=== PATIENT | male | born 1960 | race Caucasian/White ===

== ENCOUNTER 2024-02-20 13:52 | Emergency (ER) | payer OTHER ==
[~2024-02-20] VITALS: Ht 180.3 cm; Wt 74.6 kg
[~2024-02-20 13:52] MED LIST: CLINDAMYCIN HC300 MG PO; DOXYCYCLINE HY100 MG PO; IBUPROFEN600 MG PO; ROBAXIN-750750 MG PO; TRAMADOL HCL50 MG PO
[2024-02-20] MEDS ORDERED: OXYMETAZOLINE HCL 30 ML BTL NAS ONE (14:15)
[2024-02-20 14:39] VITALS: BP 145/91
== END 2024-02-20 14:39 | disposition home or self-care (01) ==
LOC: ED 13:52
DX: R04.0 Epistaxis (principal); I10 Essential (primary) hypertension; F17.200 Nicotine dependence, unspecified, uncomplicated; Z88.0 Allergy status to penicillin
CPT/HCPCS: 99283

== ENCOUNTER 2025-02-04 10:51 | Emergency (ER) | payer OTHER ==
[~2025-02-04] VITALS: Ht 180.3 cm; Wt 73.0 kg
--- OUTSIDE RECORDS SUMMARY | ~2025-02-04 | XMS | Continuity of Care Document ---
Demographics + + + | Address | [address] | | | [place] [address] | + + + | Preferred Language | Unknown | + + + | Marital Status | Legally | + + + | Mandaeism Affiliation | Unknown | + + + | Race | White | + + + | Ethnic Group | Not or | + + + Author + + + | Author | [facility] | + + + | Organization | [facility] | + + + | Address | [address] | | | [place] [address] | + + + | Phone | | + + + Care Team Providers + + + + | Care Demand Generator Manager Name | Role | Phone | + + + + Unavailable | Unavailable | + + + + Unavailable | Unavailable | + + + + Allergies and Intolerances + + + + + + | date | description | facility | reaction | severity | + + + + + + | 2024-11-28 | Penicillin | [facility] | Urticaria | (no severity) | | 00:00 | | [facility] | | | + + + + + + | 2024-11-28 | Penicillin | [facility] - | Urticaria | (no severity) | | 00:00 | | [facility] | | | + + + + + + | 2024-11-28 | Penicillin | [facility] - | Urticaria | (no severity) | | 00:00 | | [facility] | | | + + + + + + Encounters No information. Functional Status No information. Immunizations No information. Medications + + + + | date | description | facility | + + + + | 2024-11-28 00:00 | [facility] | [facility] | | | | [facility] | + + + + Problems + + + + | date | description | facility | + + + + | 2024-11-28 00:00 | Trochanteric bursitis of | [facility] | | | right hip | [facility] | + + + + Procedures No information. Results/Labs No information. Social History +--------+ + + | date | description | facility | +--------+ + + Vital Signs + + + +---------+ | date | measurement | value | units | + + + +---------+ | 2024-11-28 00:00 | BMI | 24.4 | kg/m2 | + + + +---------+ | 2024-11-28 00:00 | BP_diastolic | 90 | mmHg | + + + +---------+ | 2024-11-28 00:00 | BP_systolic | 165 | mmHg | + + + +---------+ | 2024-11-28 00:00 | heart_rate | 98 | /min | + + + +---------+ | 2024-11-28 00:00 | height_metric | 180.34 | cm | + + + +---------+ | 2024-11-28 00:00 | height_standard | 71 | in | + + + +---------+ | 2024-11-28 00:00 | o2_saturation | 95 | % | + + + +---------+ | 2024-11-28 00:00 | respiration_rate | 18 | /min | + + + +---------+ | 2024-11-28 00:00 | | 98.6 | F | | | temperature_standar | | | | | d | | | + + + +---------+ | 2024-11-28 00:00 | weight_metric | 79.501 | kg | + + + +---------+ | 2024-11-28 00:00 | weight_standard | 175.268 | lb | + + + +---------+"
[~2025-02-04 10:51] MED LIST changes: +METHYLPREDNISOLO4 M1 PO
[2025-02-04 11:25] LABS: BASOPHILS 0.5 % (0.2-1.2); EOSINOPHILS 0.5 % (0.8-7.0); LYMPHOCYTES 18.2 % (21.8-53.1); MCH 30.3 PG (25.7-32.2); MCHC 33.6 g/dL (32.3-36.5); MCV 90.3 fL (79.0-92.2); MONOCYTES 10.7 % (5.3-12.2); NEUTROPHILS 69.8 % (34.0-67.9); RBC 4.52 M/uL (4.63-6.08)
[2025-02-04] MEDS ORDERED: SODIUM CHLORIDE 0.9% 500 ML IV PRN (11:30)
[2025-02-04 11:32] LABS: INR 1.19 (0.80-1.30); PROTIME 14.6 Sec (11.2-14.2)
[2025-02-04 11:37] LABS: ALT (SGPT) 14.0 U/L (14-59); AST (SGOT) 10.0 U/L (15-37); GLOMERULAR FILTRATION RATE,EST 109.0 mL/min (>60); PROTEIN, TOTAL 7.2 g/dL (6.4-8.2); UREA NITROGEN 12.0 mg/dL (7-18)
[2025-02-04 12:02] LABS: ABO AB; ANTIBODY SCREEN NEGATIVE; RH NEGATIVE
[2025-02-04 15:42] VITALS: BP 124/85
--- NOTE | 2025-02-06 11:20 | CONS ---
[facility] [address] [place], [place] [address] Signed DATE OF CONSULTATION: 02/04/2025 REQUESTING PHYSICIAN: Dr. Mir Boston. PROBLEM: Rectal cancer. 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 He lives alone in [place]. He presented to the emergency room with complaints of rectal bleeding, but he has also had a considerable amount of constipation and liquid stool. He has never had colon evaluation and generally does not get much medical care in any real way. Evaluation in the emergency room by Dr. Boston showed him to have a perianal mass, which I subsequently affirmed to be a thrombosed hemorrhoid as well as neoplasm of the rectum consistent with rectal malignancy. His lab studies at presentation include a white count of 7.31, hematocrit 40.8. Chem profile was normal. A CT scan was performed, which was "highly concerning for primary rectal malignancy" with involvement of the anal canal and a focal polypoid soft tissue mass. He had small 5 mm mesorectal lymph nodes, which were nonspecific, but no evidence of distant metastatic disease and the liver, which was normal. Had a fair amount of stool in the colon indicating constipation. The patient does admit to difficult bowel movements. Also, leakage of rectal fluid for which he is using a TENS currently. His past medical history is notable for smoking. He denies prior colon evaluation or surgery in any way. He has no regular primary care provider. He describes allergy to penicillin. He smokes tobacco on a daily basis and uses 1-2 eight ounces of beers per day. He has had oral surgery in the past, but none others. He denies illicit drug use. He is considered likely to have underlying hypertension and anxiety. SOCIAL HISTORY: He lives alone. He has a son locally. He has a dog, which is of high importance to him. 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 REVIEW OF SYSTEMS: Denies any shortness of breath or chest pain. He has had no hematemesis, nausea or vomiting. He has had liquid stool and episodic blood per rectum. PHYSICAL EXAMINATION: GENERAL: This is a pleasant white man, who is not systemically toxic. VITAL SIGNS: BMI is 22.4 with a height of 5 feet 11 inches, weight 73 kg. HEENT: Trachea is midline. He has a large cystic-appearing lesion of the left submandibular Electronically Signed By: HETAL TREJO MD 02/06/25 1120 PATIENT NAME: ALYSHA MONTEJO CONSULTATION DATE OF : 64 REPORT #: [id number] PHYSICIAN: HETAL TREJO MD PCP: NO PRIMARY CARE PHYSICIAN REPORT IS CONFIDENTIAL AND NOT TO BE RELEASED WITHOUT AUTHORIZATION [address] [address] Signed area, which is soft and nontender. NECK: Trachea is midline. He has no cervical or supraclavicular adenopathy. CHEST: Clear. HEART: Regular without murmur. ABDOMEN: Nondistended. There is no ascites. I detect no mass. Lateral position anorectal examination shows perianal stool suggestive of some degree of incontinence. There is a relatively large 2-3 cm soft tissue mass completely consistent with thrombosed hemorrhoid without ulceration. It is not particularly tender at this time. Digital examination shows an obvious rectal neoplasm, which is firm and hard and absolutely includes the sphincter muscles. I reviewed the CT scan, which does show some stool, but no sign of obstructive colon proper. ASSESSMENT: The patient has a rectal neoplasm with impending obstruction, but not obstructed at this time. I did recommend the patient direct admission to the hospital for performance of colonoscopy with biopsy, and if impending obstruction noted, diverting loop colostomy more likely than not. The patient needs neoadjuvant chemoradiation therapy to down stage this tumor and needs an MRI to better stage also for perirectal adenopathy. He appears to have no evidence of distant metastatic disease so far, though a chest x-ray has not yet been performed. The patient refuses to have direct admission at this time; he does have a dog, which is a Daley retriever Labrador mix, which he says is somewhat aggressive and poorly handled by others. He needs to make some disposition with the dog. For such innocuous dog breed to be "mean", he explains that by noting that the dog is a rescue dog, was likely abused in its own past. Nevertheless, he has high commitment to the dog's well-being and agrees for outpatient evaluation, but does not want to be admitted at this time. It is reasonably safe to do this as he does not actually have bowel obstruction at this time, though likely has impending obstruction from his rectal neoplasm. I would foresee that colonoscopy be undertaken. Biopsy obtained, showing the more proximal colon to have no evidence of neoplasm based on clinical and radiographic findings. Chemo or radiation neoadjuvant therapy would be appropriate in hopes of shrinking down the tumor. I would recommend this even if the MRI did not show suspicious adenopathy, for which the CT scan does show some suspicion of that already. As regard to thrombosed hemorrhoid, it will involute on its own, excision could be undertaken if it is painful to him. It is not part of the neoplastic process in my opinion. Ultimately, the patient does agree to call my office; since he is on the [facility] and we will seek a referral anticipating colonoscopy. The prep that he takes may or may not be effective considering the bulkiness of the tumor, but if he should have obstructive Electronically Signed By: HETAL TREJO MD 02/06/25 1120 PATIENT NAME: GUSTABOALYSHA CONSULTATION DATE OF : 64 REPORT #: [id number] PHYSICIAN: HETAL TREJO MD PCP: NO PRIMARY CARE PHYSICIAN REPORT IS CONFIDENTIAL AND NOT TO BE RELEASED WITHOUT AUTHORIZATION [address] [address] Signed symptoms in the near future, return to the emergency room or calling me at the office would be appropriate. Hetal Trejo MD JM/MODL /[id number] cc: MIR BOSTON MD Copies: ~ Electronically Signed By: HETAL TREJO MD 02/06/25 1120 PATIENT NAME: DANIELHEBERHongALYSHA CONSULTATION DATE OF : 64 REPORT #: [id number] PHYSICIAN: HETAL TREJO MD PCP: NO PRIMARY CARE PHYSICIAN REPORT IS CONFIDENTIAL AND NOT TO BE RELEASED WITHOUT AUTHORIZATION
== END 2025-02-04 15:40 | disposition home or self-care (01) ==
LOC: ED 10:51
PROVIDERS: Emergency Medicine
DX: K62.89 Other specified diseases of anus and rectum (principal); I10 Essential (primary) hypertension; F17.200 Nicotine dependence, unspecified, uncomplicated; Z88.0 Allergy status to penicillin
CPT/HCPCS: 36415; 74177; 80053; 85025; 85610; 85730; 86850; 86900; 86901; 99284-25; J7040; Q9967

== ENCOUNTER 2025-03-21 11:50 | Day surgery (SDC) | payer OTHER ==
[2025-02-11 11:12] VITALS: BP 129/84
--- NOTE | 2025-02-11 12:53 | NUR ---
1130 PT REPORTS THAT HE HAS NO RIDE HOME. DISCUSSED WTIH PT THE NEED FOR A RIDE HOME. PT UNDERSTANDS NEED FOR RIDE HOME. CALLED AND SPOKE WITH DR TREJO STATES THAT THEY CAN DO THE PROCEDURE WITHOUT SEDATION. 1145 SPOKE WITH PT ABOUT ALTERNAIVE OF DOING PROCEDURE WITHOUT SEDATION. PT STATES HE WILL NOT DO PROCEDURE WITHOUT SEDATION. DISCUSSED THAT IF THIS IS THE CASE HE WILL NEED TO RESCHEDULE AND HAVE A RIDE HOME FROM PROCEDURE. WILL SPEAK WITH . [address] CALDWELL OFFICE ABOUT PT RESPONSE. WILL WAIT FOR DR TO CALL BACK IF THIS PT NEEDS TO RESCHEDULE. [address] TREJO'S OFFICE, AND SPOKE WITH BARB. PER BARB PT IS TO BE SENT HOME AND WILL NEED TO CALL OFFICE TO RESCHEDULE. 1235 SPOKE WITH PT ABOUT NEEDING TO RESCHEDULE. PT SEEMS UNDERSTANDING AT THIS TIME. PT STATES THAT HE WILL CALL OFFICE TO RESCHEDULE FOR ANOTHER DAY WHEN HE CAN FIND A RIDE OR ARRANGE MEDICAL TRANSPORT IN ADVANCE. PT GETTING DRESSED. 1256 PT DISCHARGED FROM [facility]. PT WILL CONTACT DR CALDWELL OFFICE TO RESCHDULE FOR ANOTHER DAY WHEN PT CAN ARRANGE A RIDE.
[~2025-03-21] VITALS: Ht 180.3 cm; Wt 72.7 kg
[~2025-03-21 11:50] MED LIST changes: +IBLOOD GLUCOSE TEST STRIP 1 EA TEST VI PRN; +LACTATED RINGER'S 1,000 ML IV SCH; +LIDOCAINE HCL 1% 5 ML SDV INJ ONE; +MIDAZOLAM HCL 5 MG/5 ML VIAL IV PRN; +fentaNYL citrate 100 MCG/2 ML VIAL IV PRN
[2025-03-21 12:53] VITALS: BP 139/86
[2025-03-21] MEDS ORDERED: MIDAZOLAM HCL 5 MG/5 ML VIAL ONE ×2 (14:28→15:26)
[2025-03-21] MEDS ORDERED: fentaNYL citrate 100 MCG/2 ML VIAL ONE (14:29)
[2025-03-21] MEDS ORDERED: LIDOCAINE HCL 4% 50 ML BTL ONE (15:09)
[2025-03-21] MEDS ORDERED: LIDOCAINE 2% VISCOUS 11 ML SYR ONE (15:12)
--- NOTE | 2025-03-21 15:49 | NUR ---
03/21/25 1549 Trevor,Antonina 1545 PT ARRIVED TO PACU ON 2L VIA NC. PT AWAKE AND TALKING TO RN. PT REPORTS THE NEED TO VOID. PLAN OF CARE DISCUSSED. VSS.
[2025-03-21 16:25] VITALS: BP 127/87
--- NOTE | 2025-03-23 14:08 | OR ---
[facility] [address] [place], [place] [address] Signed DATE OF OPERATION: 03/21/2025 SURGEON: Hetal Trejo MD PREOPERATIVE DIAGNOSIS: Rectal neoplasm, likely malignant. POSTOPERATIVE DIAGNOSES: 1. Rectal carcinoma extending to include anorectal sphincters. 2. Diverticulosis sigmoid. 3. Sessile polyp at 40 cm, excised. PROCEDURE: Total colonoscopy to cecum with cold snare polypectomy x1 and cold morcellation biopsy of rectal neoplasm. ANESTHESIA: Intravenous sedation; fentanyl 200 mcg, Versed 12 mg total. INDICATION: This 64-year-old white man presented initially to the emergency room on February 04, [address] Mir Boston with complaints of difficult bowel movements. He was found on clinical examination to have perianal swelling of the soft tissue outside the anorectum, a 2-3 cm soft tissue mass consistent with thrombosed hemorrhoid without ulceration as well as a rectal neoplasm which is firm hard and absolutely include the sphincter muscle. The patient declined admission at that time, which was offered. An outpatient colonoscopy is arranged, but when he showed up for the colonoscopy, he had no ride home and declined having a more limited exam without sedation. He ultimately has now organized for a ride home following colonoscopy today. Colonoscopy today is to secure the diagnosis of rectal carcinoma, which is obvious from a clinical perspective, but to assess for more proximal lesions. My treatment plan is invasion-chemo and radiation therapy followed by abdominoperineal resection if appropriate. The risk of colonoscopy reviewed with him. He understands and wishes to proceed. FINDINGS: There was edematous external hemorrhoidal tissue, but without sign of ulceration. Whether this was thrombosed or simply edematous is uncertain as he had it before. The anorectum was quite painful. Fair amount of sedation was required for scoping. The Electronically Signed By: HETAL TREJO MD 03/23/25 1408 PATIENT NAME: ALYSHA MONTEJO OPERATIVE REPORT DATE OF : 64 REPORT #: [id number] PHYSICIAN: HETAL TREJO MD PCP: NO PRIMARY CARE PHYSICIAN REPORT IS CONFIDENTIAL AND NOT TO BE RELEASED WITHOUT AUTHORIZATION [facility] [address] [place], [place] [address] Signed scope was passed through this area without problem ultimately to the cecum, which showed a sessile polyp at 40 cm, which was excised with cold snare technique. Diverticula of the sigmoid and left colon and an ulcerated rectal neoplasm extending from 10 cm distalward through and including the sphincter complex. DESCRIPTION OF PROCEDURE: The patient was brought to the endoscopy suite and placed in the lateral decubitus position, given intravenous sedation to the point of slurred speech and nystagmus. Digital rectal examination and inspection showed edematous external hemorrhoidal disease. Digital exam otherwise was quite uncomfortable for him, though it was accomplished and there was no sign of actual obstruction of the rectum. An Olympus video colonoscope was passed in the rectum and lidocaine jelly was used to assist in his discomfort. The scope was passed through this area into normal-appearing rectosigmoid and advanced without problem at all to the cecum itself. The prep proximally was quite good. There was diverticula of the sigmoid. Once the cecum was fully evaluated including the appendiceal orifice and ileocecal valve, the scope was withdrawn and examination showed no sign of abnormality until 40 cm from the anal verge where a sessile polyp was noted, this was excised with cold snare technique, the specimen passed for pathology. Further withdrawal confirmed diverticula of the sigmoid. In the rectum, the top of the neoplasm in relation to the anorectum was approximately 10 cm. Biopsies were taken there and in the mid and lower portions. The tumor certainly extended to and included the sphincter mechanism apparently. Edematous hemorrhoidal tissue was noted to be nonulcerated and nongangrenous. The scope was removed, and the patient was taken to the recovery room in good condition. CONCLUDING DIAGNOSES: Suspected obvious circumferential rectal cancer extending from 10 cm above the anal verge and including the sphincter complex. He does not have imminent obstruction though it will in time if untreated. The polyp of the left colon and the diverticula are unlikely concern at this time. The external hemorrhoidal from edema and possible thrombosis is of long-standing and may in part be related to vascular congestion of the anorectum from tumor or bowel prep related. PLAN: Arrangements will be made for him to see Dr. Starkey, medical oncologist and a radiation therapist as concurrent chemoradiation therapy would be indicated and promptly so. We will plan to see him back in the office in the next 1 to 2 weeks to review his pathology report and plan for intervention. We will initiate referral for medical oncology and radiation therapy at the earliest opportunity. I would recommend hot water sitz baths for the time being regarding his hemorrhoidal disease. I would recommend a low fiber diet under the circumstances of his current neoplasm as well. Electronically Signed By: HETAL TREJO MD 03/23/25 1408 PATIENT NAME: ALYSHA MONTEJO OPERATIVE REPORT DATE OF : 64 REPORT #: [id number] PHYSICIAN: HETAL TREJO MD PCP: NO PRIMARY CARE PHYSICIAN REPORT IS CONFIDENTIAL AND NOT TO BE RELEASED WITHOUT AUTHORIZATION [facility] [address] [address] Signed MD TERE Sapp/RAULL /[id number] cc: MD Mir Oseguera MD ER Juno Choe, MD, PH.D. Copies: TORRIE STAKREY MD, JUNO MD ~ Electronically Signed By: HETAL TREJO MD 03/23/25 1408 PATIENT NAME: GUSTABOALYSHA OPERATIVE REPORT DATE OF : 64 REPORT #: [id number] PHYSICIAN: HETAL TREJO MD PCP: NO PRIMARY CARE PHYSICIAN REPORT IS CONFIDENTIAL AND NOT TO BE RELEASED WITHOUT AUTHORIZATION
== END 2025-03-21 16:40 | disposition home or self-care (01) ==
LOC: DS 11:50 → OPS 11:50
PROVIDERS: ATTEND Surgery
PROC: 0DBN8ZX Excision of Sigmoid Colon, Via Natural or Artificial Opening Endoscopic, Diagnostic (ICD-10-PCS; 2025-03-21)
PROC: 0DBP8ZX Excision of Rectum, Via Natural or Artificial Opening Endoscopic, Diagnostic (ICD-10-PCS; principal; 2025-03-21 13:00)
DX: C21.8 Malignant neoplasm of overlapping sites of rectum, anus and anal canal (principal); D12.5 Benign neoplasm of sigmoid colon; K57.30 Diverticulosis of large intestine without perforation or abscess without bleeding; K64.4 Residual hemorrhoidal skin tags
CPT/HCPCS: 88305; 88341; 99153; G0500; J2250; J3010; J3490; J7121